=== PATIENT | male | born 1965 ===

== ENCOUNTER 2018-11-27 06:47 | Day surgery (SDC) | payer OTHER ==
[~2018-11-27 06:47] MED LIST: ASA81 MG; BENICAR20 MG PO; OXYBUTYNIN CHLO10 MG; SIMVASTATIN40 MG
[2018-11-27] MEDS ORDERED: NEURONTIN300 MG PO (11:00)
[2018-11-27] MEDS ORDERED: TRAMADOL HCL50 MG PO (11:00)
[2018-11-27] MEDS ORDERED: ZOFRAN4 MG PO (11:00)
[2018-11-27] MEDS ORDERED: TYLENOL EXTRA500 MG PO (11:00)
[2018-11-27] MEDS ORDERED: MIRALAX17 GM PO (11:00)
== END 2018-11-27 14:40 | disposition home or self-care (01) ==
LOC: EDBD → CIR.AMB 06:47
DX: K40.90 Unilateral inguinal hernia, without obstruction or gangrene, not specified as recurrent (principal); K42.9 Umbilical hernia without obstruction or gangrene